=== PATIENT | male | born 1965 | race Caucasian/White ===

== ENCOUNTER 2017-04-05 05:39 | Day surgery (SDC) | payer OTHER ==
[~2017-04-05] VITALS: Ht 172.7 cm; Wt 74.0 kg
[2017-04-05 06:12] VITALS: BP 126/78
[2017-04-05] MEDS ORDERED: LACTATED RINGERS 1,000 ML IV SCH (06:22)
[2017-04-05] MEDS ORDERED: LIDOCAINE 1%, 2ML SQ PRN (06:30)
[2017-04-05] MEDS ORDERED: THROMBIN 5,000 UNIT VIAL TP ONE (06:58)
[2017-04-05] MEDS ORDERED: BUPIVACAINE/PF-EPI 0.25% 1:200K ONE (06:58)
[2017-04-05] MEDS ORDERED: LIDOCAINE 0.5%-EPI 1:200K, 50ML ONE (06:58)
[2017-04-05] MEDS ORDERED: VANCOMYCIN 1,000 MG ONE (06:58)
[2017-04-05] MEDS ORDERED: FENTANYL PF 250 MCG/5ML ONE ×2 (07:06→08:34)
[2017-04-05] MEDS ORDERED: MIDAZOLAM 1 MG/ML, 2ML ONE (07:06)
[2017-04-05] MEDS ORDERED: PHENYLEPHRINE 10 MG/ML ONE (07:35)
[2017-04-05] MEDS ORDERED: ONDANSETRON 2MG/ML, 2ML ONE (07:35)
[2017-04-05] MEDS ORDERED: SUCCINYLCHOLINE 20 MG/ML, 10ML ONE (07:35)
[2017-04-05] MEDS ORDERED: ROCURONIUM 10 MG/ML ONE (07:35)
[2017-04-05] MEDS ORDERED: KETOROLAC 30 MG/1 ML ONE (07:35)
[2017-04-05] MEDS ORDERED: PROPOFOL 10 MG/ML, 20ML ONE (07:35)
[2017-04-05] MEDS ORDERED: EPHEDRINE 50 MG/ML, 1ML ONE (07:35)
[2017-04-05] MEDS ORDERED: NEOSTIGMINE 1 MG/ML, 10ML ONE (07:35)
[2017-04-05] MEDS ORDERED: DEXAMETHASONE 4 MG/ML, 1ML ONE (07:35)
[2017-04-05] MEDS ORDERED: CEFAZOLIN 1,000 MG ONE (07:35)
[2017-04-05] MEDS ORDERED: GLYCOPYRROLATE 0.2MG/1ML ONE (07:35)
[2017-04-05] MEDS ORDERED: LABETALOL 5MG/ML, 20ML IV PRN (09:30)
[2017-04-05] MEDS ORDERED: HYDROmorphone 1 MG/ML, 1ML IV PRN (09:30)
[2017-04-05] MEDS ORDERED: FENTANYL PF 100 MCG/2ML IV PRN (09:30)
[2017-04-05] MEDS ORDERED: MIDAZOLAM 1 MG/ML, 2ML IV PRN (09:30)
[2017-04-05] MEDS ORDERED: ALBUTEROL SULFATE 2.5 MG/3 ML NPPB PRN (09:30)
[2017-04-05] MEDS ORDERED: hydrALAzine 20 MG/ML, 1ML IV PRN (09:30)
[2017-04-05] MEDS ORDERED: ACETAMINOPHEN 325 MG TABLET PO PRN (09:30)
[2017-04-05] MEDS ORDERED: OXYcodone 5 MG/5 ML ORAL.SOL UDC PO PRN (09:30)
[2017-04-05] MEDS ORDERED: MEPERIDINE/PF 25MG/0.5ML IVPush PRN (09:30)
[2017-04-05] MEDS ORDERED: PROMETHAZINE 25 MG/ML, 1ML IV PRN (09:30)
[2017-04-05] MEDS ORDERED: ONDANSETRON 2MG/ML, 2ML IVPush PRN (09:30)
[2017-04-05] MEDS ORDERED: OXYcodone 5 MG/5 ML ORAL.SOL UDC ONE (11:15)
[2017-04-05] MEDS ORDERED: ACETAMINOPHEN 325 MG TABLET ONE (11:16)
[2017-04-05] MEDS ORDERED: ACETAMINOPHEN 650 MG/20.3 ML UDC ONE (11:16)
[2017-04-05] MEDS ORDERED: ONDANSETRON ODT 4 MG ONE (12:55)
[2017-04-05] MEDS ORDERED: ONDANSETRON ODT 4 MG PO PRN (13:30)
== END 2017-04-05 13:00 ==
LOC: EDSEX → OUT 05:39
PROVIDERS: ATTEND Orthopaedic Surgery Orthopaedic Surgery of the Spine
DX: M51.26 Other intervertebral disc displacement, lumbar region (principal); M48.06 Spinal stenosis, lumbar region; Z98.890 Other specified postprocedural states
CPT/HCPCS: 63030; 63035; 72100; J0330; J0690; J1100; J1885; J2250; J2370; J2405; J2704; J2710; J3010; J3370; J3490; J7120; Q0162